=== PATIENT | female | born 1965 | race African-American/Black ===

== ENCOUNTER 2017-04-20 12:55 | Emergency (ER) | payer BC ==
[2017-04-20 13:04] VITALS: TEMP 98.5; BMI 34.2
[2017-04-20] MEDS ORDERED: METOPROLOL TARTRATE 25 MG TABLET (FP) PO ONE (14:21)
--- NOTE | 2017-04-20 14:22 | PDOC ---
History of Present Illness - General Chief Complaint: Blood Pressure Problem Stated Complaint: HIGH BP Time Seen by Provider: 04/20/17 13:47 History Source: Patient Exam Limitations: No Limitations - History of Present Illness Initial Comments: 04/20/17 14:17 The patient is a 52F with undiagnosed HTN and DM who presents to the ED from [facility] for an elevated BP. The patient states that she was going to her water quality technician for an appointment and was found to have a BP in the 200's/110' s. She was sent to the [facility] urgent care and had a BP reading of 200/112 and was given 0.1 mg clonidine. Her BP here is 192/124. The patient is also an alcoholic who had her last drink 2 days ago. She is requesting detox help. She has no complaints besides diaphoresis and headache yesterday. Social: Drinks 1/2 gallon of anh and smokes marijuana every day Allergies: none Past History - Past Medical History Allergies/Adverse Reactions: Allergies Allergy/AdvReac Type Severity Reaction Status Date / Time No Known Drug Allergies Allergy Verified 04/20/17 15:01 strawberry Allergy Hives Verified 04/20/17 15:01 Home Medications: Ambulatory Orders NK [No Known Home Medication] 04/20/17 Diabetes: Yes HTN: Yes Psychiatric Problems: Yes (depression) Other medical history: alcohol abuse - Psycho/Social/Smoking Cessation Hx Anxiety: No Suicidal Ideation: No Smoking Status: Yes Smoking History: Current every day smoker Number of Cigarettes Smoked Daily: 20 Information on smoking cessation initiated: Yes 'Breaking Loose' booklet given: 04/20/17 Hx Alcohol Use: Yes Drug/Substance Use Hx: Yes (marijuana) Substance Use Type: None Review of Systems - Review of Systems Able to Perform ROS?: Yes Is the patient limited Irish proficient: No Constitutional: Yes: Chills, Other (Shakes yesterday). No: Fever Respiratory: No: Shortness of Breath Cardiac (ROS): No: Chest Pain ABD/GI: No: Nausea, Vomiting, Other (abd pain) Neurological: No: Headache, Numbness, Tingling, Weakness *Physical Exam - Vital Signs Last Vital Signs Temp Pulse Resp BP Pulse Ox 98.5 F 80 19 192/124 99 04/20/17 13:01 04/20/17 13:01 04/20/17 13:01 04/20/17 13:01 04/20/17 13:01 - Physical Exam General Appearance: Yes: Nourished, Appropriately Dressed. No: Apparent Distress HEENT: positive: Normal Voice, Hearing Grossly Normal Respiratory/Chest: positive: Lungs Clear, Normal Breath Sounds. negative: Chest Tender, Respiratory Distress Cardiovascular: positive: Regular Rhythm, Regular Rate, S1, S2. negative: Diastolic Murmur, Systolic Murmur Gastrointestinal/Abdominal: positive: Flat. negative: Tender, Distended, Guarding, Rebound, Tenderness Musculoskeletal: negative: CVA Tenderness, CVA Tenderness (R), CVA Tenderness (L ) Extremity: negative: Swelling, Calf Tenderness Integumentary: positive: Normal Color, Dry, Warm Neurologic: positive: Fully Oriented, Alert, Normal Mood/Affect, Motor Strength 01/20 ED Treatment Course - LABORATORY CBC & Chemistry Diagram: 04/20/17 14:30 04/20/17 14:30 Medical Decision Making - Medical Decision Making 04/20/17 14:23 The patient is a 52F with undiagnosed HTN and DM who presents to the ED after being sent here for hypertensive urgency from an urgent care. I will do basic labs and a repeat EKG to rule out STEMI and any end organ damage from the HTN. 04/20/17 17:26 I called [facility] and they have a bed available for the patient. She is requesting detox there. Her repeat BP is 147/93. Patient agrees for discharge. *DC/Admit/Observation/Transfer Diagnosis at time of Disposition: Hypertension Qualifiers: Hypertension type: unspecified Qualified Code(s): I10 - Essential (primary) hypertension - Discharge Dispostion Disposition: I.P. ALCOHOL/SUBS ABUSE REHAB Condition at time of disposition: Stable Admit: No - Attestations Physician Attestion: 04/20/17 17:29 I, Dr. Benja Leon, attest that this document has been prepared under my direction and personally reviewed by me in its entirety. I further attest, that it accurately reflects all work, treatment, procedures and medical decision -making performed by me.
[2017-04-20 14:42] LABS: BASOPHIL 0.9 % (0-2.0); EOSINOPHIL 0.7 % (0-4.5); MCHC 32.1 g/dl (32.0-36.0); MEAN CELL VOLUME 81.1 fl (80-96); MEAN PLT VOLUME 8.5 fl (7.5-11.1); NEUTROPHILS 71.4 % (42.8-82.8); PLATELET COUNT 264 K/MM3 (134-434); RDW 15.5 % (11.6-15.6)
--- NOTE | 2017-04-20 14:53 | PDOC ---
Attending Attestation - HPI HPI: 04/20/17 15:11 52 year old female with a PMHx depression, alcohol abuse, undiagnosed HTN, diabetes (off medication for 6 months) presents to the ED from [facility] with elevated BP. Patient reports her PCP was monitoring her BP last year, but did not put her on medications. She has not been to her PCP since then. Patient also states that she has been tapering down her alcohol consumption for the past two weeks. She reports her last drink was two days ago. She states she currently feels withdrawal symptoms such as sweating, shaking and headache. She reports marijuana use daily. She denies any other drug use. She denies nausea, vomiting, diarrhea. She denies dizziness, chest pain, SOB. Denies withdrawal seizures. - Physicial Exam PE: 04/20/17 15:12 GENERAL: Awake, alert, and fully oriented, in no acute distress HEAD: No signs of trauma EYES: PERRLA, EOMI, sclera anicteric, conjunctiva clear ENT: No tongue fasciculations. Auricles normal inspection, hearing grossly normal, nares patent, oropharynx clear without exudates. Moist mucosa NECK: Normal ROM, supple, no lymphadenopathy, JVD, or masses LUNGS: Breath sounds equal, clear to auscultation bilaterally. No wheezes, and no crackles HEART: Regular rate and rhythm, normal S1 and S2, no murmurs, rubs or gallops ABDOMEN: Soft, nontender, normoactive bowel sounds. No guarding, no rebound. No masses EXTREMITIES: Normal range of motion, no edema. No clubbing or cyanosis. No cords , erythema, or tenderness NEUROLOGICAL: No tremors. Cranial nerves II through XII grossly intact. Normal speech, normal gait SKIN: Warm, Dry, normal turgor, no rashes or lesions noted. <Malina Wright - Last Filed: 04/20/17 15:11> - Resident Resident Name: Benja Leon - ED Attending Attestation I have performed the following: I have examined & evaluated the patient, The case was reviewed & discussed with the resident, I agree w/resident's findings & plan, Exceptions are as noted - Medical Decision Making 04/20/17 15:15 52 F with diet controlled DM presents to ER with HTN and requesting detox. Pt with no signs of active ETOh withdrawal on exam. However, given pt's symptoms of anxiety and restlessness, along with her HTN, pt could be in early withdrawal. Pt is otherwise HD stable. - BP control - Librium - Possible transfer to rehab facility. 04/20/17 17:10 Pt BP now improved with librium and metoprolol. Pt stable for DC. Pt continues to be asymptomatic with no clinical findings of acute withdrawal. Will transfer to [facility] rehab. <Ephraim Monge - Last Filed: 04/20/17 17:11>
[2017-04-20] MEDS ORDERED: chlordiazePOXIDE HCL 25 MG CAPSULE PO ONE (15:06)
--- NOTE | 2017-04-20 15:06 | EKG ---
Test Reason : Blood Pressure : / mmHG Vent. Rate : 079 BPM Atrial Rate : 079 BPM P-R Int : 152 ms QRS Dur : 084 ms QT Int : 440 ms P-R-T Axes : 058 038 041 degrees QTc Int : 504 ms SINUS RHYTHM WITH PREMATURE ATRIAL COMPLEXES PROLONGED QT ABNORMAL ECG WHEN COMPARED WITH ECG OF 18-AUG-2007 09:51, PREMATURE ATRIAL COMPLEXES ARE NOW PRESENT QT HAS LENGTHENED Confirmed by FIONA HARE, CHRISTOPHER ([id number]) on 04/20/2017 3:06:34 PM Referred By: Confirmed By:CHRISTOPHER JAIMES MD
[2017-04-20 15:08] LABS: ALK PHOS 127 U/L (45-117); ANION GAP 10 (8-16); BILIRUBIN,TOTAL 0.4 mg/dL (0.2-1.0); CALCIUM 9.4 mg/dL (8.5-10.1); CO2 23 mmol/L (21-32); CREATININE 0.8 mg/dL (0.55-1.02); GLUCOSE,RANDOM 89 mg/dL (74-106); SGPT/ALT 24 U/L (12-78); TOT PROT 8.5 g/dl (6.4-8.2)
[2017-04-20] MEDS ORDERED: chlordiazePOXIDE HCL 25 MG CAPSULE ONE (15:35)
[2017-04-20 15:44] LABS: URINE MARIJUANA THC POSITIVE ng/ml (CUTOFF=50)
[2017-04-20 17:12] LABS: SGOT/AST 22 U/L (15-37)
[2017-04-20 17:47] VITALS: BP 147/93; PULSE 72
== END 2017-04-20 17:47 | disposition other institution (70) ==
LOC: JER 12:55
DX: I10 Essential (primary) hypertension (principal); E11.9 Type 2 diabetes mellitus without complications; F10.20 Alcohol dependence, uncomplicated; F32.9 Major depressive disorder, single episode, unspecified; F17.210 Nicotine dependence, cigarettes, uncomplicated; Z91.018 Allergy to other foods
CPT/HCPCS: 36415; 80053; 80307; 85025; 93005; 93010; 99282-25

== ENCOUNTER 2017-04-20 18:56 | Inpatient (IN) | payer BC ==
[2017-04-20 19:44] VITALS: BMI 34.2
--- NOTE | 2017-04-20 20:17 | HP ---
CIWA Score - CIWA Score Nausea/Vomitin-Mild Nausea/No Vomiting Muscle Tremors: 3 Anxiety: 4-Mod. Anxious/Guarded Agitation: 3 Paroxysmal Sweats: 2 Orientation: 0-Oriented Tacttile Disturbances: 0-None Auditory Disturbances: 0-None Visual Disturbances: 2-Mild Sensitivity Headache: 0-None Present CIWA-Ar Total Score: 15 Admission ROS BHS - HPI Chief Complaint: WITHDRAWAL SYMPTOMS Allergies/Adverse Reactions: Allergies Allergy/AdvReac Type Severity Reaction Status Date / Time No Known Drug Allergies Allergy Verified 04/20/17 19:51 nut - unspecified Allergy Hives Verified 04/20/17 19:51 strawberry Allergy Hives Verified 04/20/17 19:51 History of Present Illness: 52 Y.O. WOMAN WITH AN EXTENSIVE HISTORY OF ALCOHOL DEPENDENCE IS HERE SEEKING DETOX FOR THE FIRST TIME. DOES NOT HAVE A SIGNIFICANT PERIOD OF SOBRIETY. Exam Limitations: No Limitations - Ebola screening Have you traveled outside of the country in the last 21 days: No Have you had contact with anyone from an Ebola affected area: No Have you been sick,other than usual withdrawal symptoms: No Do you have a fever: No - Review of Systems Constitutional: Chills, Diaphoresis, Loss of Appetite EENT: reports: Blurred Vision, Tearing Respiratory: reports: No Symptoms reported Cardiac: reports: Lightheadedness GI: reports: No Symptoms Reported : reports: No Symptoms Reported Musculoskeletal: reports: Back Pain, Joint Pain Integumentary: reports: No Symptoms Reported Neuro: reports: Headache, Tremors Endocrine: reports: No Symptoms Reported Hematology: reports: No Symptoms Reported Psychiatric: reports: Judgement Intact, Mood/Affect Appropiate, Orientated x3, Depressed, other (BIPOLAR) Other Systems: Reviewed and Negative Patient History - Patient Medical History Hx Anemia: No Hx Asthma: No Hx Chronic Obstructive Pulmonary Disease (COPD): No Hx Cancer: No Hx Cardiac Disorders: No Hx Congestive Heart Failure: No Hx Hypertension: Yes Hx Hypercholesterolemia: No Hx Pacemaker: No HX Cerebrovascular Accident: No Hx Seizures: No Hx Dementia: No Hx Diabetes: Yes Hx Gastrointestinal Disorders: Yes (DYSPEPSIA ) Hx Liver Disease: No Hx Genitourinary Disorders: No Hx Sexually Transmitted Disorders: No Hx Renal Disease (ESRD): No Hx Thyroid Disease: No Hx Human Immunodeficiency Virus (HIV): No Hx Hepatitis C: No Hx Depression: Yes (DENIES SI/HI ) Hx Suicide Attempt: No Hx Bipolar Disorder: Yes Hx Schizophrenia: No - Patient Surgical History Past Surgical History: Yes Hx Section: Yes Hx Hysterectomy: Yes (PARTIAL) Anesthesia Reaction: Yes - PPD History Previous Implant?: Yes Documented Results: Negative w/o proof PPD to be Administered?: Yes - Reproductive History Patient is a Female of Child Bearing Age (11 -55 yrs old): Yes Last Menstrual Period: 01/24/12 Patient : No - Smoking Cessation Smoking history: Current every day smoker Aproximately how many cigarettes per day: 20 Hx Chewing Tobacco Use: No Initiated information on smoking cessation: Yes 'Breaking Loose' booklet given: 04/20/17 - Substance & Tx. History Hx Alcohol Use: Yes Hx Substance Use: No Substance Use Type: Alcohol Hx Substance Use Treatment: No - Substances Abused Alcohol Route: Oral Frequency: Daily Amount used: 2 PINTS OF LIQUOR Age of first use: 12 Date of Last Use: 04/18/17 Family Disease History - Family Disease History Family Disease History: Diabetes: Father (ETOH DEPENDNECE), CA: Mother (STOMACH CA ), Respiratory: Mother, Other: Father Admission Physical Exam S - Vital Signs Vital Signs: Vital Signs - 24 hr 04/20/17 19:41 Temperature 97.2 F L Pulse Rate 72 Respiratory 16 Rate Blood Pressure 160/120 - Physical General Appearance: Yes: Alcohol on Breath, Tremorous, Anxious HEENTM: Yes: Normocephalic, Normal Voice Respiratory: Yes: Chest Non-Tender, Lungs Clear, Normal Breath Sounds, No Respiratory Distress, No Accessory Muscle Use Breast: Yes: Breast Exam Deferred Cardiology: Yes: Regular Rhythm, Regular Rate Abdominal: Yes: Normal Bowel Sounds, Non Tender, Flat, Soft Genitourinary: Yes: Other (NO COMPLAINTS REPORTED) Back: Yes: Normal Inspection Musculoskeletal: Yes: full range of Motion, Gait Steady, Pelvis Stable Extremities: Yes: Normal Capillary Refill, Normal Inspection, Normal Range of Motion, Non-Tender Neurological: Yes: manager of digital II-XII NML intact, Fully Oriented, Alert, Motor Strength 5/5, Normal Mood/Affect, Normal Response Integumentary: Yes: Normal Color, Dry, Warm Lymphatic: Yes: Within Normal Limits - Diagnostic (1) Hypertension Current Visit: Yes Status: Chronic Qualifiers: Hypertension type: unspecified Qualified Code(s): I10 - Essential ( primary) hypertension (2) Nicotine dependence Current Visit: Yes Status: Chronic (3) Alcohol dependence with uncomplicated withdrawal Current Visit: Yes Status: Chronic Cleared for Admission [facility] - Detox or Rehab [facility] Level of Care: Medically Managed Detox Regimen/Protocol: Librium [facility] Breath Alcohol Content Breath Alcohol Content: 0 Urine Pregancy Test - Result Urine Test Results: Negative- NO Line Present Urine Drug Screen - Results Drug Screen Negative: No Urine Drug Screen Results: THC-Marijuana
[2017-04-20] MEDS ORDERED: MAGNESIUM HYDROX 2400MG/30ML ORAL SUSPENSION 30 ML CUP PO PRN (20:30)
[2017-04-20] MEDS ORDERED: MAGNESIUM CITRATE 300 ML BOTTLE PO PRN (20:30)
[2017-04-20] MEDS ORDERED: guaiFENesin/D-METHORPHAN HB 10 ML UNIT-DOSE CUPS PO PRN (20:30)
[2017-04-20] MEDS ORDERED: MAG HYDROX/AL HYDROX/SIMETH 30 ML UNIT-DOSE CUP PO PRN (20:30)
[2017-04-20] MEDS ORDERED: MENTHOL/PHENOL 1 EACH UD MM PRN (20:30)
[2017-04-20] MEDS ORDERED: LOPERAMIDE HCL 2 MG CAPSULE PO PRN (20:30)
[2017-04-20] MEDS ORDERED: P-EPHED 60MG/TRIPROLIDI 2.5MG TABLET PO PRN (20:30)
[2017-04-20] MEDS ORDERED: chlordiazePOXIDE HCL 25 MG CAPSULE PO ONE (20:30)
[2017-04-20] MEDS ORDERED: chlordiazePOXIDE HCL 25 MG CAPSULE PO PRN (20:30)
[2017-04-20] MEDS ORDERED: hydrOXYzine PAMOATE 50 MG CAPSULE (FP) PO PRN (20:30)
[2017-04-20] MEDS ORDERED: ACETAMINOPHEN 325 MG TABLET (FP) PO PRN (20:30)
[2017-04-20] MEDS ORDERED: cloNIDine HCL 0.1 MG TABLET PO PRN (20:33)
[2017-04-20] MEDS: THIAMINE HCL 100 MG TABLET (FP) PO SCH (22:55)
[2017-04-20] MEDS: chlordiazePOXIDE HCL 25 MG CAPSULE PO SCH (23:04)
[2017-04-20] MEDS: IBUPROFEN 400 MG TABLET (FP) PO PRN (23:07)
[2017-04-20 23:08] LABS: URINE APPEARANCE CLEAR; URINE BILIRUBIN NEGATIVE (NEGATIVE); URINE BLOOD 2+ (NEGATIVE); URINE COLOR YELLOW; URINE GLUCOSE (UA) NEGATIVE (NEGATIVE); URINE KETONE NEGATIVE (NEGATIVE); URINE LEUK ESTERASE NEGATIVE (NEGATIVE); URINE NITRITE NEGATIVE (NEGATIVE); URINE UROBILINOGEN NEGATIVE mg/dL (0.2-1.0)
[2017-04-20] MEDS: diphenhydrAMINE HCL 50 MG CAPSULE PO PRN (23:08)
[2017-04-20 23:09] LABS: URINE PROTEIN 1+ (NEGATIVE)
[2017-04-20 23:10] LABS: URINE MUCUS FEW; URINE RBC 2 /hpf (0-3); URINE WBC 2 /hpf (3-5)
[2017-04-21] MEDS: chlordiazePOXIDE HCL 25 MG CAPSULE PO SCH ×4 (05:16→22:10)
[2017-04-21] MEDS: IBUPROFEN 400 MG TABLET (FP) PO PRN (07:25)
[2017-04-21 09:59] LABS: MCH 26.2 pg (25.7-33.7); MEAN CELL VOLUME 81.7 fl (80-96); MEAN PLT VOLUME 8.9 fl (7.5-11.1); PLATELET COUNT 253 K/MM3 (134-434); RDW 15.7 % (11.6-15.6); WHITE BLOOD COUNT 7.5 K/mm3 (4.0-10.0)
[2017-04-21 10:01] LABS: ALBUMIN 3.4 g/dl (3.4-5.0); ANION GAP 9 (8-16); CALCIUM 9.1 mg/dL (8.5-10.1); CO2 24 mmol/L (21-32); CREATININE 0.8 mg/dL (0.55-1.02); GLUCOSE,RANDOM 112 mg/dL (74-106); SGOT/AST 7 U/L (15-37); SGPT/ALT 19 U/L (12-78)
[2017-04-21 10:04] LABS: ALK PHOS 96 U/L (45-117); BILIRUBIN,TOTAL 0.4 mg/dL (0.2-1.0); TOT PROT 6.9 g/dl (6.4-8.2)
[2017-04-21] MEDS: PRENATAL VITAMINS W/ FOLIC ACID TABLET (FP) PO SCH (10:10)
--- NOTE | 2017-04-21 10:57 | PN ---
S CIWA - CIWA Score Nausea/Vomitin Muscle Tremors: 3 Anxiety: 2 Agitation: 3 Paroxysmal Sweats: 2 Orientation: 0-Oriented Tacttile Disturbances: 1-Very Mild Itch/Numbness Auditory Disturbances: 1-Very Mild Visual Disturbances: 1-Very Mild Sensitivity Headache: 2-Mild CIWA-Ar Total Score: 18 S Progress Note (SOAP) Subjective: ALERT,IRRITABLE,ANXIOUS,INTERRUPTED SLEEP,TREMOR Objective: 04/21/17 10:55 Vital Signs Temperature 97.7 F 04/21/17 10:00 Pulse Rate 65 04/21/17 10:38 Respiratory Rate 163 H 04/21/17 10:38 Blood Pressure 160/100 04/21/17 10:00 O2 Sat by Pulse Oximetry (%) EKG NSR WITH SINUS ARRHYTHMIA Laboratory Last Values WBC 7.5 K/mm3 (4.0-10.0) 04/21/17 07:00 RBC 5.02 M/mm3 (3.60-5.2) 04/21/17 07:00 Hgb 13.1 GM/dL (10.7-15.3) D 04/21/17 07:00 Hct 41.0 % (32.4-45.2) 04/21/17 07:00 MCV 81.7 fl (80-96) 04/21/17 07:00 MCH 26.2 pg (25.7-33.7) 04/21/17 07:00 MCHC 32.0 g/dl (32.0-36.0) 04/21/17 07:00 RDW 15.7 % (11.6-15.6) H 04/21/17 07:00 Plt Count 253 K/MM3 (134-434) 04/21/17 07:00 MPV 8.9 fl (7.5-11.1) 04/21/17 07:00 Sodium 141 mmol/L (136-145) 04/21/17 07:00 Potassium 3.8 mmol/L (3.5-5.1) 04/21/17 07:00 Chloride 108 mmol/L (98-107) H 04/21/17 07:00 Carbon Dioxide 24 mmol/L (21-32) 04/21/17 07:00 Anion Gap 9 (8-16) 04/21/17 07:00 BUN 14 mg/dL (7-18) 04/21/17 07:00 Creatinine 0.8 mg/dL (0.55-1.02) 04/21/17 07:00 Creat Clearance w eGFR > 60 (>60) 04/21/17 07:00 Random Glucose 112 mg/dL (74-106) H D 04/21/17 07:00 Calcium 9.1 mg/dL (8.5-10.1) 04/21/17 07:00 Total Bilirubin 0.4 mg/dL (0.2-1.0) 04/21/17 07:00 AST 7 U/L (15-37) L D 04/21/17 07:00 ALT 19 U/L (12-78) D 04/21/17 07:00 Alkaline Phosphatase 96 U/L (45-117) D 04/21/17 07:00 Total Protein 6.9 g/dl (6.4-8.2) 04/21/17 07:00 Albumin 3.4 g/dl (3.4-5.0) 04/21/17 07:00 Urine Color Yellow 04/20/17 22:50 Urine Appearance Clear 04/20/17 22:50 Urine pH 5.0 (5.0-8.0) 04/20/17 22:50 Urine Protein 1+ (NEGATIVE) H 04/20/17 22:50 Urine Glucose (UA) Negative (NEGATIVE) 04/20/17 22:50 Urine Ketones Negative (NEGATIVE) 04/20/17 22:50 Urine Blood 2+ (NEGATIVE) H 04/20/17 22:50 Urine Nitrite Negative (NEGATIVE) 04/20/17 22:50 Urine Bilirubin Negative (NEGATIVE) 04/20/17 22:50 Urine Urobilinogen Negative mg/dL (0.2-1.0) 04/20/17 22:50 Ur Leukocyte Esterase Negative (NEGATIVE) 04/20/17 22:50 Urine RBC 2 /hpf (0-3) 04/20/17 22:50 Urine WBC 2 /hpf (3-5) 04/20/17 22:50 Ur Epithelial Cells Rare /hpf (FEW) 04/20/17 22:50 Urine Mucus Few 04/20/17 22:50 Assessment: 04/21/17 10:56 WITHDRAWAL SYMPTOM Plan: CONTINUE DETOX
[2017-04-21 11:54] LABS: HIV 1 & 2 AB NEGATIVE; HIV 1 AGp24 NEGATIVE
[2017-04-21] MEDS ORDERED: LIDOCAINE VISCOUS 2% ORAL/TOP 20 ML UNIT-DOSE CUP MM PRN (11:59)
[2017-04-21] MEDS ORDERED: IBUPROFEN 400 MG TABLET (FP) PO PRN (12:00)
--- NOTE | 2017-04-21 12:22 | CONSULT ---
[facility] Psychiatric Consult - Data Date of interview: 04/21/17 Admission source: [facility] Identifying data: First admission to [facility] for this 52 y/o AA female seeking detox treatment on for alcohol dependence (tox screen is positive for marijuana).Patient is ,a mother of two,domiciled,unemployed and supported by . Substance Abuse History: Fully discussed in this interview.Patient confirms this [facility] report : Smoking Cessation. Smoking history: Current every day smoker. Aproximately how many cigarettes per day: 20. Hx Chewing Tobacco Use: No. Initiated information on smoking cessation: Yes. 'Breaking Loose' booklet given: 04/20/17. - Substance & Tx. History. Hx Alcohol Use: Yes. Hx Substance Use: No. Substance Use Type: Alcohol. Hx Substance Use Treatment: No. - Substances Abused. Alcohol. Route: Oral. Frequency: Daily. Amount used: 2 PINTS OF LIQUOR. Age of first use: 12. Date of Last Use: 04/18/17 Medical History: Hypertension and diabetes mellitus. Psychiatric History: No history of psychiatric hospitalizations.Diagnosed with Bipolar Disorder and presenting with a remote history of treatment with lithium.Dropped of OPD care years ago.Ms Martini denies having a psychiatrist at this time and she declines recommendation to re-enlist in psychiatric outpatient care.No history of suicide attempts (had ideation to drown herself about 10 years ago). Physical/Sexual Abuse/Trauma History: No history of sexual abuse.Noted report of one case of completed suicide in the family (her 24 y/o brother killed himself via overdose with medications - used antihypertensive pills prescribed to patient's - years ago).Still traumatized by this tragic loss but patient is managing to cope. Additional Comment: Urine Drug Screen Results: THC-Marijuana.Noted. Mental Status Exam - Mental Status Exam Alert and Oriented to: Time, Place, Person Cognitive Function: Good Patient Appearance: Well Groomed Mood: Anxious, Apprehensive (about elevated blood pressure), Hopeful Affect: Appropriate Patient Behavior: Appropriate, Cooperative Speech Pattern: Clear, Appropriate Voice Loudness: Normal Thought Process: Goal Oriented Thought Disorder: Not Present Hallucinations: Denies Suicidal Ideation: Denies Homicidal Ideation: Denies Insight/Judgement: Poor Sleep: Poorly, Difficulty falling asleep (requests benadryl) Appetite: Good Muscle strength/Tone: Normal Gait/Station: Normal Psychiatric Findings - Problem List (Moon 1, 2,3) (1) Alcohol dependence with uncomplicated withdrawal Current Visit: Yes Status: Acute (2) Marihuana abuse Current Visit: Yes Status: Acute (3) Nicotine dependence Current Visit: Yes Status: Acute (4) Substance induced mood disorder Current Visit: Yes Status: Acute (5) Hypertension Current Visit: Yes Status: Chronic Qualifiers: Hypertension type: unspecified Qualified Code(s): I10 - Essential ( primary) hypertension (6) Cellulitis Current Visit: Yes Status: Acute (7) Urticaria Current Visit: Yes Status: Acute (8) Insomnia Current Visit: Yes Status: Acute - Initial Treatment Plan Initial Treatment Plan: Psychoeducation.Detoxification.Observation.Insomnia is addressed with benadryl 50 mg po hs on a prn basis.
[2017-04-21] MEDS ORDERED: TRIAMTERENE AND HCTZ - 37.5 MG/25 MG CAPSULE PO ONE (14:44)
[2017-04-21] MEDS ORDERED: cloNIDine HCL 0.1 MG TABLET PO ONE (14:44)
[2017-04-21] MEDS: THIAMINE HCL 100 MG TABLET (FP) PO SCH (22:10)
[2017-04-21] MEDS: diphenhydrAMINE HCL 50 MG CAPSULE PO PRN (22:15)
[2017-04-22] MEDS: chlordiazePOXIDE HCL 25 MG CAPSULE PO SCH ×3 (05:50→17:15)
--- NOTE | 2017-04-22 08:16 | EKG ---
Test Reason : Blood Pressure : / mmHG Vent. Rate : 065 BPM Atrial Rate : 065 BPM P-R Int : 156 ms QRS Dur : 088 ms QT Int : 456 ms P-R-T Axes : 058 030 030 degrees QTc Int : 474 ms NORMAL SINUS RHYTHM WITH SINUS ARRHYTHMIA NORMAL ECG WHEN COMPARED WITH ECG OF 20-APR-2017 14:34, PREMATURE ATRIAL COMPLEXES ARE NO LONGER PRESENT Confirmed by LINDSEY MAC MD ([id number]) on 04/22/2017 8:16:08 AM Referred By: Confirmed By:LINDSEY MAC MD
[2017-04-22] MEDS: TRIAMTERENE AND HCTZ - 37.5 MG/25 MG CAPSULE PO SCH (10:11)
[2017-04-22] MEDS: PRENATAL VITAMINS W/ FOLIC ACID TABLET (FP) PO SCH (10:11)
--- NOTE | 2017-04-22 11:16 | PN ---
S CIWA - CIWA Score Nausea/Vomitin Muscle Tremors: 3 Anxiety: 3 Agitation: 2 Paroxysmal Sweats: 1-Minimal Palms Moist Orientation: 0-Oriented Tacttile Disturbances: 1-Very Mild Itch/Numbness Auditory Disturbances: 1-Very Mild Visual Disturbances: 1-Very Mild Sensitivity Headache: 2-Mild CIWA-Ar Total Score: 17 BHS Progress Note (SOAP) Subjective: ALERT,IRRITABLE,ANXIOUS,INTERRUPTED SLEEP,TREMOR Objective: 04/22/17 11:15 Vital Signs Temperature 98.1 F 04/22/17 10:00 Pulse Rate 74 04/22/17 10:00 Respiratory Rate 18 04/22/17 10:00 Blood Pressure 149/79 04/22/17 10:00 O2 Sat by Pulse Oximetry (%) Laboratory Last Values WBC 7.5 K/mm3 (4.0-10.0) 04/21/17 07:00 RBC 5.02 M/mm3 (3.60-5.2) 04/21/17 07:00 Hgb 13.1 GM/dL (10.7-15.3) D 04/21/17 07:00 Hct 41.0 % (32.4-45.2) 04/21/17 07:00 MCV 81.7 fl (80-96) 04/21/17 07:00 MCH 26.2 pg (25.7-33.7) 04/21/17 07:00 MCHC 32.0 g/dl (32.0-36.0) 04/21/17 07:00 RDW 15.7 % (11.6-15.6) H 04/21/17 07:00 Plt Count 253 K/MM3 (134-434) 04/21/17 07:00 MPV 8.9 fl (7.5-11.1) 04/21/17 07:00 Sodium 141 mmol/L (136-145) 04/21/17 07:00 Potassium 3.8 mmol/L (3.5-5.1) 04/21/17 07:00 Chloride 108 mmol/L (98-107) H 04/21/17 07:00 Carbon Dioxide 24 mmol/L (21-32) 04/21/17 07:00 Anion Gap 9 (8-16) 04/21/17 07:00 BUN 14 mg/dL (7-18) 04/21/17 07:00 Creatinine 0.8 mg/dL (0.55-1.02) 04/21/17 07:00 Creat Clearance w eGFR > 60 (>60) 04/21/17 07:00 Random Glucose 112 mg/dL (74-106) H D 04/21/17 07:00 Calcium 9.1 mg/dL (8.5-10.1) 04/21/17 07:00 Total Bilirubin 0.4 mg/dL (0.2-1.0) 04/21/17 07:00 AST 7 U/L (15-37) L D 04/21/17 07:00 ALT 19 U/L (12-78) D 04/21/17 07:00 Alkaline Phosphatase 96 U/L (45-117) D 04/21/17 07:00 Total Protein 6.9 g/dl (6.4-8.2) 04/21/17 07:00 Albumin 3.4 g/dl (3.4-5.0) 04/21/17 07:00 Urine Color Yellow 04/20/17 22:50 Urine Appearance Clear 04/20/17 22:50 Urine pH 5.0 (5.0-8.0) 04/20/17 22:50 Ur Specific [place] 1.025 (1.005-1.025) 04/20/17 22:50 Urine Protein 1+ (NEGATIVE) H 04/20/17 22:50 Urine Glucose (UA) Negative (NEGATIVE) 04/20/17 22:50 Urine Ketones Negative (NEGATIVE) 04/20/17 22:50 Urine Blood 2+ (NEGATIVE) H 04/20/17 22:50 Urine Nitrite Negative (NEGATIVE) 04/20/17 22:50 Urine Bilirubin Negative (NEGATIVE) 04/20/17 22:50 Urine Urobilinogen Negative mg/dL (0.2-1.0) 04/20/17 22:50 Ur Leukocyte Esterase Negative (NEGATIVE) 04/20/17 22:50 Urine RBC 2 /hpf (0-3) 04/20/17 22:50 Urine WBC 2 /hpf (3-5) 04/20/17 22:50 Ur Epithelial Cells Rare /hpf (FEW) 04/20/17 22:50 Urine Mucus Few 04/20/17 22:50 RPR Titer Nonreactive (NONREACTIVE) 04/21/17 07:00 Hepatitis C Antibody <0.1 s/co ratio (0.0-0.9) 04/20/17 07:00 HIV 1&2 Antibody Screen Negative 04/21/17 08:30 HIV P24 Antigen Negative 04/21/17 08:30 Assessment: 04/22/17 11:15 WITHDRAWAL SYMPTOM Plan: CONTINUE DETOX
[2017-04-22] MEDS: THIAMINE HCL 100 MG TABLET (FP) PO SCH (22:10)
[2017-04-22] MEDS: diphenhydrAMINE HCL 50 MG CAPSULE PO PRN (22:10)
[2017-04-22] MEDS: chlordiazePOXIDE 5 MG CAPSULE PO SCH (22:10)
[2017-04-23] MEDS: chlordiazePOXIDE 5 MG CAPSULE PO SCH ×3 (05:45→17:58)
[2017-04-23] MEDS: TRIAMTERENE AND HCTZ - 37.5 MG/25 MG CAPSULE PO SCH (10:13)
[2017-04-23] MEDS: PRENATAL VITAMINS W/ FOLIC ACID TABLET (FP) PO SCH (10:13)
--- NOTE | 2017-04-23 10:37 | PN ---
S Progress Note (SOAP) Subjective: ALERT,IRRITABLE,ANXIOUS,INTERRUPTED SLEEP Objective: 04/23/17 10:36 Vital Signs Temperature 97.7 F 04/23/17 10:23 Pulse Rate 82 04/23/17 10:23 Respiratory Rate 16 04/23/17 10:23 Blood Pressure 153/107 04/23/17 10:23 O2 Sat by Pulse Oximetry (%) Assessment: 04/23/17 10:36 WITHDRAWAL SYMPTOM Plan: CONTINUE DETOX,DISCHARGE IN AM
[2017-04-23] MEDS: THIAMINE HCL 100 MG TABLET (FP) PO SCH (22:24)
[2017-04-23] MEDS: chlordiazePOXIDE HCL 10 MG CAPSULE PO SCH (22:24)
[2017-04-23] MEDS: diphenhydrAMINE HCL 50 MG CAPSULE PO PRN (22:25)
[2017-04-24] MEDS: chlordiazePOXIDE HCL 10 MG CAPSULE PO SCH (05:41)
--- NOTE | 2017-04-24 09:19 | DS ---
[facility] Detox Discharge Summary Admission Date: 04/20/17 Discharge Date: 04/24/17 - History Present History: Alcohol Dependence Additional Comments: follow up with after care program as arrangement Pertinent Past History: hypertension nicotine dependence - Physical Exam Results Vital Signs: Vital Signs Temperature 97.5 F L 04/24/17 06:22 Pulse Rate 83 04/24/17 06:22 Respiratory Rate 18 04/24/17 06:22 Blood Pressure 144/90 04/24/17 06:22 O2 Sat by Pulse Oximetry (%) Pertinent Admission Physical Exam Findings: withdrawal symptom - Treatment Hospital Course: Detox Protocol Followed, Detoxed Safely, Responded well, Discharged Condition Good Patient has Accepted a Rehab Referral to: declined - Medication Discharge Medications: Ambulatory Orders Unobtainable [Unobtainable] 04/20/17 - Diagnosis (1) Alcohol dependence with uncomplicated withdrawal Current Visit: Yes Status: Acute (2) Nicotine dependence Current Visit: Yes Status: Acute (3) Hypertension Current Visit: Yes Status: Chronic Qualifiers: Hypertension type: unspecified Qualified Code(s): I10 - Essential ( primary) hypertension - AMA Did Patient Leave Against Medical Advice: No
[2017-04-24 09:48] VITALS: BP 159/99; PULSE 105; TEMP 97.7
== END 2017-04-24 09:44 | disposition home or self-care (01) | DRG 897 ==
LOC: YASAS 18:56 → Y6N 20:00
PROVIDERS: ADMIT Internal Medicine; ATTEND Internal Medicine
PROC: HZ2ZZZZ Detoxification Services for Substance Abuse Treatment (ICD-10-PCS; principal; 2017-04-20)
DX: F10.230 Alcohol dependence with withdrawal, uncomplicated (principal); F17.210 Nicotine dependence, cigarettes, uncomplicated; F19.24 Other psychoactive substance dependence with psychoactive substance-induced mood disorder; I10 Essential (primary) hypertension; G47.00 Insomnia, unspecified; I49.9 Cardiac arrhythmia, unspecified; Z91.010 Allergy to peanuts; Z91.018 Allergy to other foods
CPT/HCPCS: 36415; 80053; 81003; 81015; 85027; 86593; 86803; 87389; 93005; 93010